=== PATIENT | male | born 1980 | race Caucasian/White ===

== ENCOUNTER 2018-01-11 17:33 | Emergency (ER) | payer SELFPAY ==
[~2018-01-11] VITALS: Ht 175.3 cm; Wt 85.0 kg
[2018-01-11 17:40] VITALS: Ht 175.3 cm; Wt 85.0 kg
[2018-01-11] MEDS ORDERED: SODIUM CHLORIDE 0.9% 1000ML 1,000 ML IV STA (17:51)
[2018-01-11] MEDS ORDERED: ONDANSETRON INJ 2 MG/ML 2 ML VIAL IV STA (17:51)
[2018-01-11] MEDS ORDERED: PANTOprazole INJ 80 MG in DEXTROSE 5% 100ML IV STA (17:55)
[2018-01-11] MEDS ORDERED: ADENOSINE IV SOLN 3 MG/ML 2 ML VIAL ONE ×2 (17:59→18:03)
[2018-01-11 18:05] LABS: ISTAT CREATININE 0.7 mg/dl (0.6-1.3); ISTAT IONIZED CALCIUM 1.09 mmol/l (1.12-1.32); ISTAT POTASSIUM 4.1 mEq/L (3.3-5.0)
[2018-01-11] MEDS ORDERED: PANTOprazole INJ 40 MG in DEXTROSE 5% 100ML IV SCH (18:10)
[2018-01-11 18:11] LABS: INR 1.5 (0.9-1.1); PTT PATIENT 30.8 SECONDS (21.0-31.0)
[2018-01-11 18:18] LABS: HEMATOCRIT 18.2 % (42-52); HEMOGLOBIN 6.6 g/dL (14.0-18.0); MEAN CELL VOLUME 97.3 fL (80-100); MEAN CORPUSCULAR HEMOGLOBIN 35.3 pg (25-34); MEAN CORPUSCULAR HGB CONC 36.3 g/dl (32-36); MEAN PLATELET VOLUME 12.3 fL (7.4-10.4); PLATELET COUNT 114 K/uL (130-400); RED CELL DISTRIBUTION WIDTH CV 13.9 % (11.5-14.5); RED CELL DISTRIBUTION WIDTH SD 47.6 fL (36.4-46.3); WHITE BLOOD COUNT 15.08 K/uL (4.8-10.8)
--- NOTE | 2018-01-11 18:21 | DIAGNOSTIC IMAGING REPORT ---
CHEST ONE VIEW PORTABLE CLINICAL HISTORY: EVALUATE GI BLEED COMPARISON STUDY: No previous studies for comparison. FINDINGS: Pediatric median sternotomy wires are noted, several of which are disrupted. Heart is mildly enlarged. There is no evidence for pulmonary edema. There is no consolidation. No pneumothorax or pleural effusion is present. IMPRESSION: 1. No acute cardiopulmonary findings. 2. Mild cardiomegaly. Electronically signed by: Charles Greene M.D. 01/11/2018 6:19 PM Dictated Date/Time: 01/11/2018 6:19 PM
[2018-01-11 18:35] LABS: ALBUMIN 2.3 gm/dl (3.4-5.0); CALCIUM 7.2 mg/dl (8.5-10.1); CREATININE 0.88 mg/dl (0.60-1.40); POTASSIUM 4.1 mmol/L (3.5-5.1); TOTAL PROTEIN 4.4 gm/dl (6.4-8.2)
[2018-01-11 18:37] LABS: BASO % 0.2 %; BASO ABS # 0.03 K/uL (0-0.2); EOS % 0.1 %; EOS ABS # 0.02 K/uL (0-0.5); IG# 0.07 K/uL (0.00-0.02); LYMPH % 19.5 %; LYMPH ABS # 2.94 K/uL (1.2-3.4); MONO % 7.8 %; MONO ABS # 1.17 K/uL (0.11-0.59); NEUT % 71.9 %; NEUT ABS # 10.85 K/uL (1.4-6.5)
[2018-01-11 18:45] VITALS: BP 99/68; PULSE 134; TEMP 36.7; O2SAT 96
--- NOTE | 2018-01-11 18:53 | EMERGENCY ROOM VISIT NOTE ---
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 Began yesterday with some epigastric discomfort vomited once and had multiple episodes of diarrhea. Describes a vomitus and diarrhea as maroon and mildly red. Not bright red. [place] weak and several times last night once today. Has not been on his Lasix for his heart failure since September due to insurance issues. Follows with [facility] and had his surgery there many years ago. Given his syncope his called EMS today and hypotensive in the 90s initially. Responded to fluid bolus. Had transient SVT there and upon arrival. Transient SVT. Responded to vagal maneuvers. Denies chest pain or shortness of breath. Denies significant alcohol use. Denies NSAID use of significance although did take an Aleve and an Imodium today. Denies a history of GI upset or issues. States he feels dizzy when standing. Source of History: patient, spouse/significant other Position: abdomen Symptom Intensity: moderate Quality: cramping Timing: waxes/wanes Modifying Factors (Worsening): exertion, urination, defecation Modifying Factors (Relieving): rest Associated Symptoms: + diaphoresis, + SOB, + fatigue, + weakness Review of Systems See HPI for pertinent positives and negatives. A total of ten systems were reviewed and were otherwise negative. Social History Alcohol Use: occasionally Marital Status: Housing Status: lives with significant other Occupation Status: employed Current/Historical Medications No Active Prescriptions or Reported Meds Physical Exam Vital Signs Date Time Temp Pulse Resp B/P (MAP) Pulse Ox O2 Delivery O2 Flow Rate FiO2 01/11/18 19:45 36.8 132 17 106/71 97 2.0 01/11/18 19:41 132 18 114/74 96 Nasal Cannula 2.0 01/11/18 19:30 36.9 132 21 120/64 97 2.0 01/11/18 19:15 36.8 129 17 102/68 96 2.0 01/11/18 19:00 36.7 127 21 119/60 98 4.0 01/11/18 18:46 113/65 01/11/18 18:45 36.7 134 22 99/68 96 4.0 01/11/18 18:43 134 23 96 01/11/18 18:41 99/68 01/11/18 18:38 137 21 96 01/11/18 18:36 86/70 01/11/18 18:34 141 20 119/73 96 Nasal Cannula 4.0 01/11/18 18:33 140 18 96 01/11/18 18:32 119/73 01/11/18 18:28 135 26 97 01/11/18 18:27 91/74 01/11/18 18:24 101/70 01/11/18 18:23 137 22 98 01/11/18 18:18 138 21 97 01/11/18 18:13 133 20 98 01/11/18 18:08 133 18 115/58 97 01/11/18 18:03 151 16 96 01/11/18 18:01 83/55 01/11/18 18:00 221 01/11/18 17:58 222 50 01/11/18 17:57 Nasal Cannula 2.0 01/11/18 17:56 99 Nasal Cannula 2.0 01/11/18 17:54 107 01/11/18 17:53 98 18 93 01/11/18 17:51 120/48 01/11/18 17:47 124/71 01/11/18 17:40 100 Nasal Cannula 3.0 01/11/18 17:40 36.9 106 123/78 97 Room Air Physical Exam GENERAL: Awake, alert, sarabia in appearance and fatigued looking HENT: Normocephalic, atraumatic. Oropharynx unremarkable. EYES: Normal conjunctiva. Sclera non-icteric. NECK: Supple. No nuchal rigidity. RESPIRATORY: Clear to auscultation. No wheezes. Normal respiratory effort. CARDIAC: tachycardic rate. Normal rhythm. Extremities warm and well perfused. GI: Soft, non-distended. Slight epigastric pain. Not peritoneal RECTAL: Maroon to dark red stool was present and Hemoccult positive MUSCULOSKELETAL: Atraumatic. Chest examination reveals no tenderness. There is no CVA tenderness to palpation. LOWER EXTREMITIES: Calves are equal size bilaterally and non-tender. No edema NEURO: Normal sensorium. No sensory or motor deficits noted. No facial droop. SKIN: Cool, pale, and dry. No jaundice noted. Medical Decision & Procedures Laboratory Results 01/11/18 17:40 Red Blood Count 1.87, Mean Corpuscular Volume 97.3, Mean Corpuscular Hemoglobin 35.3, Mean Corpuscular Hemoglobin Concent 36.3, Mean Platelet Volume 12.3, Neutrophils (%) (Auto) 71.9, Lymphocytes (%) (Auto) 19.5, Monocytes (%) (Auto) 7.8, Eosinophils (%) (Auto) 0.1, Basophils (%) (Auto) 0.2, Neutrophils # (Auto) 10.85, Lymphocytes # (Auto) 2.94, Monocytes # (Auto) 1.17, Eosinophils # (Auto) 0.02, Basophils # (Auto) 0.03 01/11/18 17:40 Test 01/11/18 17:40 01/11/18 17:52 White Blood Count 15.08 K/uL (4.8-10.8) Red Blood Count 1.87 M/uL (4.7-6.1) Hemoglobin 6.6 g/dL (14.0-18.0) Hematocrit 18.2 % (42-52) Mean Corpuscular Volume 97.3 fL (80-100) Mean Corpuscular Hemoglobin 35.3 pg (25-34) Mean Corpuscular Hemoglobin Concent 36.3 g/dl (32-36) Platelet Count 114 K/uL (130-400) Mean Platelet Volume 12.3 fL (7.4-10.4) Neutrophils (%) (Auto) 71.9 % Lymphocytes (%) (Auto) 19.5 % Monocytes (%) (Auto) 7.8 % Eosinophils (%) (Auto) 0.1 % Basophils (%) (Auto) 0.2 % Neutrophils # (Auto) 10.85 K/uL (1.4-6.5) Lymphocytes # (Auto) 2.94 K/uL (1.2-3.4) Monocytes # (Auto) 1.17 K/uL (0.11-0.59) Eosinophils # (Auto) 0.02 K/uL (0-0.5) Basophils # (Auto) 0.03 K/uL (0-0.2) RDW Standard Deviation 47.6 fL (36.4-46.3) RDW Coefficient of Variation 13.9 % (11.5-14.5) Immature Granulocyte % (Auto) 0.5 % Immature Granulocyte # (Auto) 0.07 K/uL (0.00-0.02) Platelet Estimate NORMAL Red Blood Cell Morphology Unremarkable Prothrombin Time 15.9 SECONDS (9.0-12.0) Prothromb Time International Ratio 1.5 (0.9-1.1) Activated Partial Thromboplast Time 30.8 SECONDS (21.0-31.0) Partial Thromboplastin Ratio 1.2 Est Creatinine Clear Calc Drug Dose 124.3 ml/min Estimated GFR () 127.2 Estimated GFR (Non- 109.7 BUN/Creatinine Ratio 55.8 (10-20) Calcium Level 7.2 mg/dl (8.5-10.1) Magnesium Level 1.6 mg/dl (1.8-2.4) Total Bilirubin 0.8 mg/dl (0.2-1) Direct Bilirubin 0.4 mg/dl (0-0.2) Aspartate Amino Transf (AST/SGOT) 78 U/L (15-37) Alanine Aminotransferase (ALT/SGPT) 76 U/L (12-78) Alkaline Phosphatase 49 U/L (45-117) Troponin I 0.097 ng/ml (0-0.045) Pro-B-Type Natriuretic Peptide 1856 pg/ml (0-450) Total Protein 4.4 gm/dl (6.4-8.2) Albumin 2.3 gm/dl (3.4-5.0) Lipase 159 U/L (73-393) Thyroid Stimulating Hormone (TSH) 4.780 uIu/ml (0.300-4.500) Bedside Hemoglobin 13.3 g/dl (14.0-18.0) Bedside Hematocrit 39 % (42-52) Bedside Sodium 142 mEq/L (135-144) Bedside Potassium 4.1 mEq/L (3.3-5.0) Bedside Chloride 108 mEq/L (101-112) Bedside Total CO2 17 mEq/l (24-31) Anion Gap 22.0 mmol/L (16-25) Bedside Blood Urea Nitrogen 48 mg/dl (7-18) Bedside Creatinine 0.7 mg/dl (0.6-1.3) Bedside Glucose (other) 122 mg/dl (70-99) Bedside Ionized Calcium (Joana) 1.09 mmol/l (1.12-1.32) Medications Administered Medications (Trade) Dose Ordered Sig/Brooks Route Start Time Stop Time Status Last Admin Dose Admin Sodium Chloride 1,000 ml @ 999 mls/hr Q1H1M STAT IV 01/11/18 17:51 01/11/18 18:51 DC 01/11/18 18:00 999 MLS/HR Ondansetron HCl (Zofran Inj) 4 mg NOW STAT IV 01/11/18 17:51 01/11/18 17:53 DC 01/11/18 18:18 4 MG Pantoprazole Sodium 80 mg/ Dextrose 120 ml @ 480 mls/hr NOW STAT IV 01/11/18 17:55 01/11/18 18:09 DC 01/11/18 18:15 480 MLS/HR Pantoprazole Sodium 40 mg/ Dextrose 100 ml @ 20 mls/hr Q5H IV 01/11/18 18:10 01/11/18 23:09 01/11/18 18:34 20 MLS/HR Adenosine (Adenosine Iv) 6 mg STK-MED ONCE .ROUTE 01/11/18 17:59 01/11/18 18:00 DC 01/11/18 17:59 6 MG ECG Per My Interpretation Indication: tachycardia Rate (beats per minute): 99 Rhythm: sinus tachycardia Findings: other (incomplete RBBB, III/V1/V2/V3 t wave inversions. No STEMI) Comparison ECG Date: no prior available ED Course 1736: The patient was evaluated in room B4. A complete history and physical exam was performed. Vagal maneuvers performed for SVT in the 160s. Successful. Hemoccult + stool 1745: Call back to room patient in SVT in the 200s. Vagal maneuvers failed. Adenosine 6 ng given with resolution into the 120s and 1 teens of sinus tach. 1830: Discussed with [facility] ICU doctor and GI for transfer. Patient receiving Protonix drip. Uncrossed match blood in route from blood bank. Tachy in 130s but SBP 115. 1850: Uncrossed match blood being transfused. Helicopter in route for transfer. Family has been updated. Blood consent was completed. 2004: [facility] at bedside. Care transitioned. 2 u pRBC completed at this time. Patient feeling mildly improved. Transfer to [facility]. Medical Decision Patient's concerning for possible GI bleed. Unsure of what prompted this as he has no history of this or alcohol or NSAID use. Mild epigastric discomfort. Concern for again also. Abdomen is not peritoneal I doubt perforation. Recurrent episodes of SVT initially responding to vagal maneuvers. Later required 6 g of adenosine for conversion. Still in sinus tachycardia. After a liter of fluid for EMS is normotensive upon arrival mildly tachycardic. Very pale in nature. 2 IVs were established. Protonix drip and bolus was initiated. Case management assisted with obtaining outside records from [facility]. Not having active chest pain. Very sarabia in appearance and given the underlying cardiac issues believed to be better served at a tertiary care center. Patient in agreement. Given 2 units of uncrossed matched blood initially and discussed with the [facility] ICU and GI. 1L NS here and 1LNS for EMS. Initial hemoglobin 6.6. Records show Jul 2012 Hgb of 17.9 most recent available for comparison. Given his critical nature helicopter transport will be arranged- ICU accepting at [facility] Dr. [place]. Patient agreeable and consented for uncrossed blood. Agreeable for transfer and full code. Hypomagnesemia and slight hypocalcemia. Thrombocytopenia also noted. Slight troponin elevation likely demand; given GI bleed will NOT give aspirin. Feels mildly improved after 2u pRBC. Stable for helicopter transfer to [facility]. Blood Pressure Screening Patient's blood pressure: Normal blood pressure Impression Primary Impression: GI bleeding Additional Impressions: Acute blood loss anemia SVT (supraventricular tachycardia) NSTEMI (non-ST elevated myocardial infarction) Thrombocytopenia Critical Care I have personally spent greater than 120 minutes of critical care time in the direct management of this patient. This includes bedside care, interpretation of diagnostic studies, and testing, discussion with consultants, patient, and family members, and other required patient management activities. This time is in excess of all separately billable procedures. Departure Information Dispostion Transfer Acute Care Facility Condition FAIR Prescriptions No Active Prescriptions or Reported Meds Referrals Frances Enrique D.O. (PCP) Patient Instructions My [facility] Problem Qualifiers Primary Impression: GI bleeding GI bleed type/associated pathology: unspecified gastrointestinal hemorrhage type Qualified Codes: K92.2 - Gastrointestinal hemorrhage, unspecified
[2018-01-11 19:00] VITALS: BP 119/60; PULSE 127; TEMP 36.7; O2SAT 98
[2018-01-11 19:15] VITALS: BP 102/68; PULSE 129; TEMP 36.8; O2SAT 96
[2018-01-11 19:30] VITALS: BP 120/64; PULSE 132; TEMP 36.9; O2SAT 97
[2018-01-11 19:45] VITALS: BP 106/71; PULSE 132; TEMP 36.8; O2SAT 97
[2018-01-11 20:22] VITALS: BP 117/62; PULSE 132; TEMP 36.7; O2SAT 97
== END 2018-01-11 20:10 | disposition short-term general hospital (02) ==
LOC: EDBD 17:33 → C.EDB 17:34
DX: K92.2 Gastrointestinal hemorrhage, unspecified (principal); D62 Acute posthemorrhagic anemia; I47.1 Supraventricular tachycardia; I21.4 Non-ST elevation (NSTEMI) myocardial infarction; D69.6 Thrombocytopenia, unspecified; I50.9 Heart failure, unspecified; Z95.0 Presence of cardiac pacemaker

== ENCOUNTER 2018-09-14 06:18 | Observation (INO) ==
[2018-09-14] MEDS ORDERED: fentaNYL citrate 100 MCG/2 ML VIAL IV STA (06:39)
--- NOTE | 2018-09-14 06:57 | XRay Report ---
XR chest 1V portable CLINICAL HISTORY: Atypical chest pain and shortness of breath COMPARISON STUDY: 01/11/2018 FINDINGS: There are postsurgical changes of midline sternotomy. The heart is enlarged. There is radio graphic evidence of mild interstitial pulmonary edema. There is no lobar consolidation.[ IMPRESSION: Cardiomegaly and interval development of mild interstitial pulmonary edema. Electronically signed by: David Ureña M.D. 09/14/2018 6:55 AM
[2018-09-14 07:01] LABS: Alanine Aminotransferase 92 U/L (12-78); Albumin Level 3.6 gm/dl (3.4-5.0); Aspartate Aminotransferase 78 U/L (15-37); BUN Creatinine Ratio 22.1 (10-20); Bilirubin Direct 0.5 mg/dl (0-0.2); Blood Urea Nitrogen 16 mg/dl (7-18); Calcium 8.7 mg/dl (8.5-10.1); Carbon Dioxide 24 mmol/L (21-32); Chloride 111 mmol/L (98-107); Creatinine Clr Calc Pharmacy 166.3 ml/min; Est GFR (African American) 137.2; Est GFR (Non-African American) 118.3; Glucose 103 mg/dl (70-99); Magnesium 1.9 mg/dl (1.8-2.4); Potassium 4.2 mmol/L (3.5-5.1); Sodium 142 mmol/L (136-145)
[2018-09-14 07:04] LABS: INR 1.2 (0.9-1.1); Partial Thromboplastin Ratio 1.1; Partial Thromboplastin Time 28.5 Seconds (21.0-31.0); Prothrombin Time 11.9 Seconds (9.0-12.0)
[2018-09-14 07:06] LABS: Alkaline Phosphatase 114 U/L (45-117); NT Pro B Type Natriuretic Pept 527 pg/ml (0-450); Total Protein 7.3 gm/dl (6.4-8.2); Troponin I < 0.015 ng/ml (0-0.045)
[2018-09-14 07:15] LABS: Basophils # (auto) 0.02 K/uL (0-0.2); Basophils % (auto) 0.3 %; Eosinophils # (auto) 0.12 K/uL (0-0.5); Eosinophils % (auto) 1.9 %; Hematocrit (blood only) 44.6 % (42-52); Hemoglobin 15.8 g/dL (14.0-18.0); Immature Granulocytes # (auto) 0.01 K/uL (0.00-0.02); Immature Granulocytes % (auto) 0.2 %; Lymphocytes # (auto) 0.97 K/uL (1.2-3.4); Lymphocytes % (auto) 15.6 %; Mean Corpuscular Hgb Conc 35.4 g/dL (32-36); Mean Corpuscular Volume 99.6 fL (80-100); Mean Platelet Volume 12.6 fL (7.4-10.4); Monocytes # (auto) 0.43 K/uL (0.11-0.59); Monocytes % (auto) 6.9 %; Neutrophils # (auto) 4.65 K/uL (1.4-6.5); Neutrophils % (auto) 75.1 %; Platelet Count 65 K/uL (130-400); Platelet Estimate Decreased (Normal); RDW Standard Deviation 50.6 fL (36.4-46.3); Red Blood Count 4.48 M/uL (4.7-6.1)
[2018-09-14] MEDS ORDERED: FUROSEMIDE 40 MG/4 ML VIAL IV STA (07:20)
--- NOTE | 2018-09-14 09:28 | History & Physical Report ---
Date of Service September 14, 2018 Assessment & Plan (1) Chest pain: Worsening SOB Present on admission with chest pain associated with SOB Mostly triggered by nadolol CXR on admission cardiomegaly and interval development of mild interstitial pulmonary edema. Pro-BNP on admission 527 troponin negative EKG showed no ischemic changes Received 40mg IV lasix in the ER Will consult cardiology Will get echo Monitor in tele closely (2) Chronic hepatitis C: (3) Liver cirrhosis: Recently saw GI Was starting on Nadolol Will d/c Nadolol Follow up with GI as an oupatient (4) Cardiac pacemaker in situ: Last pacemaker interrogation on 01/17 EKG on admission did not show any pacing Will interrogate pacemaker (5) History of GI bleed: Transferred to [place] last December for GI bleed Hgb stable DVT px pt ambulates CODE status Full code Disposition Will monitor in tele History of Present Illness Primary Care Provider: Laron Clemens MD 37-year-old gentleman with a PMH of 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 Pt said that he saw GI on Friday for HCV cirrhosis and was started on Nadolol. Pt said that he started the Nadolol on Friday. He said that after taking the 1st dose nadolol, he went to sleep for about 1-2 hrs and when he woke up he developed pressure like chest pain, non radiating associated with SOB. Pt said that SOB worsening with minimal exertion associated with orthopnea. He said that he felt like he just ran a marathon. He said that he developed b/l LE edema. Pt said that he used to be on lasix that was discontinue last year. He said that after he received the lasix in the ER, He urinated 3 times and his breathing improves and his chest pain resolved. He said that he follows with cardiology in [place]. He said that his pacemaker battery was changed back in 2008. last pacemaker interrogation done back in 01/17. Currently denies any chest pain, palpitation, dizziness, nausea and vomiting. Allergies Allergy/AdvReac Type Severity Reaction Status Date / Time pseudoephedrine AdvReac Intermediate Palpitation Verified 09/14/18 06:51 [From Sudafed] s Home Medications Home Medications Medication Instructions Recorded Confirmed Type ferrous sulfate 325 mg PO DAILY 09/14/18 09/14/18 History nadolol 20 mg PO DAILY 09/14/18 09/14/18 History varenicline [Chantix Continuing 1 mg PO BID 09/14/18 09/14/18 History Month Box] Past Med/Surg History Medical History Congenital heart disease History of GI bleed Cardiac pacemaker in situ Liver cirrhosis Chronic hepatitis C Chest pain Social History Preferred Language: [place] Communication Ability: Effective Beliefs That Will Affect Care: None Current Living Situation: Spouse Other Information That Helps Us Care for You: No Feels Safe at Home: Yes Safety Concerns: Feels Safe At This Time Smoking Status: Never smoker Hx Alcohol Use: Yes Hx Substance Use: No Review of Systems All systems reviewed & are unremarkable except as noted in HPI & below Physical Exam Vital Signs (Past 24 Hours): Last Vital Signs Temp 37 C 09/14/18 06:21 Pulse 57 L 09/14/18 08:06 Resp 12 09/14/18 08:06 BP 121/73 09/14/18 08:06 Pulse Ox 96 09/14/18 08:06 Physical Exam: General- No acute distress Head- atraumatic Eyes- PERRL, EOMI, ENT- oropharynx clear Neck- supple, no JVD Lungs- clear to auscultation Heart- regular rhythm; +murmur Abdomen- normal bowel sounds, soft, nontender Extremities- no calf tenderness Neuro- alert, oriented x 3; PERRL, EOMI; no facial palsy; no dysarthria Skin- warm & dry Results & Data Diagnostic Findings XR chest 1V portable CLINICAL HISTORY: Atypical chest pain and shortness of breath COMPARISON STUDY: 01/11/2018 FINDINGS: There are postsurgical changes of midline sternotomy. The heart is enlarged. There is radiographic evidence of mild interstitial pulmonary edema. There is no lobar consolidation.[ IMPRESSION: Cardiomegaly and interval development of mild interstitial pulmonary edema. Electronically signed by: David Ureña M.D. 09/14/2018 6:55 AM Dictated: 09/14/18654 Transcribed: 09/14/1855
[2018-09-14] MEDS ORDERED: FERROUS SULFATE 325 MG TAB PO SCH (11:12)
--- NOTE | 2018-09-14 14:34 | Emergency Department Note ---
Entered by Shannan Alberto acting as a scribe for Cristobal Hanley MD ED Provider Note Name: Jerry Wayne Age: Chest pain Arrives Via: Private vehicle Informant: Patient CC: Chest pain HPI: A 38 year old male arrives for evaluation of persistent chest pressure beginning 2 days ago. He reports his symptoms began shortly after beginning Nadolol 2 days ago, which he was prescribed for esophageal varices. The patient states he took his first dose of Nadolol 2 days ago, took a 1 hour nap, and woke up with his current symptoms. He notes he has not taken another dose since. The patient describes his chest pain as pressure that radiates up to his throat/neck. He reports shortness of breath on exertion. He states he is lightheaded and has intermittent sweatiness. The patient reports leg edema, which he had experienced intermittently over the past few months. His notes the patient has been urinating more frequently over the past couple days. The patient denies lightheadedness, black or bloody stools, or urinary burning. ROS: See above HPI for pertinent positives & negatives. A total of 10 systems reviewed and were otherwise negative. Past Medical History: Hepatitis C, GI bleed, esophageal varices, transposition of great vessels at . Past Surgical History: Repair of transposition of great vessels, pacemaker placement. Family History: Heart disease. Social History: Former smoker. Home Medications: Ferrous sulfate, nadolol, varenicline. Allergies: Pseudoephedrine. Physical: Vitals: Blood pressure: 114/74. Heart rate: 59. Respiratory rate: 14. Temperature: 98.6 F. O2 saturation: 94, delivery: room air. Exam: GENERAL: Patient is uncomfortable appearing and in mild distress. Diaphoretic. EYES: No scleral icterus, unremarkable pupils. ENT: Mucous membranes moist, no nasal congestion. NECK: No masses appreciated, no meningismus, trachea is midline. RESPIRATORY: No dyspnea. Mild crackles at bases. No wheeze, no rhonchi. CARDIOVASCULAR: Noted to be bradycardic. Regular rhythm. Systolic murmur. GASTROINTESTINAL: Abdomen soft, non-tender, no peritonitis. Bowel sounds positive. No masses appreciated. BACK: No midline tenderness, no CVA tenderness EXTREMITIES: Normal motion all extremities, no cyanosis. Bilateral leg edema. NEUROLOGIC: Alert and oriented, no acute motor or sensory deficits, no focal weakness, cranial nerves grossly intact. SKIN: No rash, no jaundice, no diaphoresis. ED Course: Prior Medical Record, Triage/Nursing Notes, Medications, Allergies reviewed by Me Vital Signs: reviewed and remarkable for mild hypoxia, bradycardia Labs: Reviewed and remarkable for normal cbc, bmp, bnp, trop Interventions: Saline Lock, Lasix 40mg IV Imaging: X ray results are stated below per my interpretation: Chest: 1 view: Bilateral congestive findings new form previous. EKG: Per My Interpretation: Indication: SHOB/CP: Sinus 62 bpm with long 1st av block which is new from previous. RBBB with deep Ts similar to previous. No ischemia and overall morphology of qrs similar to EKGs from 2018. Consults: 0735: I reviewed the patient's case with Dr. Baum, [facility] hospitalist. He will evaluate the patient for further management. Reassessments/Times: 0659: The patient has had some improvement of his pain. 0740: Upon reevaluation, the patient is resting and feels much better on nasal cannula. He just received his Lasix dose. I discussed test results. The patient verbalized agreement with the treatment plan. Blood pressure: Normal. No Referral necessary. Disposition: Evaluation by hospitalist. Prescriptions: none. Differentials: Etiologies such as shingles, musculoskeletal pain, pericarditis, myocarditis, cardiac ischemia, pericardial tamponade, pneumonia, pneumothorax, pleural effusion, hemothorax, pleurisy, aortic pathology, pulmonary embolism, intra-abdominal process, as well as others were considered. Medical Decision Makin yr old male with complex past cardiac surgical history. He is uncomfortable appearing and appears CHF by exam. Unclear exactly but could have been he went further vaishnavi on nadalol and started developing CHF in conjunction with fluid build up on legs last few weeks now that he's off lasix. Renal function OK thus IV lasix. He feels much better with NC O2 thus will leave him on that for now. WIth history I feel that coming in will be beneficial to patient. He agrees. Hospitalist in to bring in for further management. Impression: Congestive Heart Failure Substernal Chest Pain Cristobal Hanley MD The scribe's documentation has been prepared under my direction and personally reviewed by me in its entirety. I confirm that the note above accurately reflects all work, treatment, procedures, and medical decision making performed by me. Impression & Plan Congestive heart failure, Substernal chest pain Past Med/Surg History Medical History Congenital heart disease History of GI bleed Cardiac pacemaker in situ Liver cirrhosis Chronic hepatitis C Chest pain Social History Preferred Language: Cook Islander Communication Ability: Effective Beliefs That Will Affect Care: None Current Living Situation: Spouse Other Information That Helps Us Care for You: No Feels Safe at Home: Yes Safety Concerns: Feels Safe At This Time Smoking Status: Never smoker Hx Alcohol Use: Yes Hx Substance Use: No Results & Data Vital Signs Vital Signs - 24 hr 09/14/18 06:21 09/14/18 06:50 09/14/18 07:07 Temperature 37 C Temperature Source Oral Sepsis Recent Fever Within 48 Hours No Sepsis Action Taken by Nursing No Action Required Pulse Rate 63 Pulse Rate [Apical] 59 L Pulse Rhythm [Apical] Regular Pulse Strength [Apical] Respiratory Rate 16 14 Respiratory Effort / Characteristics Non-Labored Respiratory Depth Normal Normal Respiratory Pattern Blood Pressure 132/82 Blood Pressure [Left Arm] 114/74 Blood Pressure Mean 98 Blood Pressure Mean [Left Arm] 87 Blood Pressure Position [Left Arm] Sitting Pulse Oximetry 95 94 94 Oxygen Delivery Method Room Air Room Air Nasal Cannula Oxygen Flow Rate 0 09/14/18 07:29 09/14/18 07:46 09/14/18 08:06 Temperature Temperature Source Sepsis Recent Fever Within 48 Hours Sepsis Action Taken by Nursing Pulse Rate Pulse Rate [Apical] 57 L 57 L Pulse Rhythm [Apical] Regular Regular Pulse Strength [Apical] Respiratory Rate 15 12 Respiratory Effort / Characteristics Non-Labored SOB on Exertion Non-Labored Respiratory Depth Normal Normal Normal Respiratory Pattern Regular Regular Blood Pressure Blood Pressure [Left Arm] 129/80 121/73 Blood Pressure Mean Blood Pressure Mean [Left Arm] 96 89 Blood Pressure Position [Left Arm] Sitting Pulse Oximetry 97 96 Oxygen Delivery Method Room Air Room Air Nasal Cannula Oxygen Flow Rate 2 2 09/14/18 09:00 09/14/18 10:08 09/14/18 10:48 Temperature Temperature Source Sepsis Recent Fever Within 48 Hours Sepsis Action Taken by Nursing Pulse Rate Pulse Rate [Apical] 58 L 57 L 53 L Pulse Rhythm [Apical] Regular Regular Regular Pulse Strength [Apical] Respiratory Rate 15 14 17 Respiratory Effort / Characteristics Non-Labored Non-Labored Respiratory Depth Normal Normal Normal Respiratory Pattern Blood Pressure Blood Pressure [Left Arm] 116/69 113/66 109/58 L Blood Pressure Mean Blood Pressure Mean [Left Arm] 84 81 75 Blood Pressure Position [Left Arm] Sitting Sitting Lying Pulse Oximetry 96 98 99 Oxygen Delivery Method Nasal Cannula Nasal Cannula Nasal Cannula Oxygen Flow Rate 2 2 09/14/18 10:52 09/14/18 11:24 09/14/18 12:00 Temperature 36.9 C Temperature Source Oral Sepsis Recent Fever Within 48 Hours Sepsis Action Taken by Nursing Pulse Rate Pulse Rate [Apical] 52 L 58 L Pulse Rhythm [Apical] Regular Regular Pulse Strength [Apical] Normal Normal Respiratory Rate 18 18 Respiratory Effort / Characteristics Non-Labored Spontaneous Non-Labored Spontaneous Respiratory Depth Normal Normal Respiratory Pattern Regular Regular Blood Pressure Blood Pressure [Left Arm] 127/64 117/66 Blood Pressure Mean Blood Pressure Mean [Left Arm] 85 83 Blood Pressure Position [Left Arm] Sitting Sitting Pulse Oximetry 98 97 97 Oxygen Delivery Method Nasal Cannula Room Air Room Air Oxygen Flow Rate 2 Home Medications Current Medication List: was personally reviewed by me Laboratory Data Attestation: I reviewed the patient's lab results. Result diagrams: 09/14/18 06:33 09/14/18 06:33 Lab Results 09/14/18 09/14/18 09/14/18 Range/Units 06:33 06:33 06:33 WBC 6.20 (4.8-10.8) K/uL RBC 4.48 L (4.7-6.1) M/uL Hgb 15.8 (14.0-18.0) g/dL Hct 44.6 (42-52) % MCV 99.6 (80-100) fL MCH 35.3 H (25-34) pg MCHC 35.4 (32-36) g/dL RDW Std Deviation 50.6 H (36.4-46.3) fL RDW Coeff of Jefry 14.0 (11.5-14.5) % Plt Count 65 L (130-400) K/uL MPV 12.6 H (7.4-10.4) fL Immature Gran % (Auto) 0.2 % Neut % (Auto) 75.1 % Lymph % (Auto) 15.6 % Cooke % (Auto) 6.9 % Eos % (Auto) 1.9 % Baso % (Auto) 0.3 % Immature Gran # (Auto) 0.01 (0.00-0.02) K/uL Neut # (Auto) 4.65 (1.4-6.5) K/uL Lymph # (Auto) 0.97 L (1.2-3.4) K/uL Cooke # (Auto) 0.43 (0.11-0.59) K/uL Eos # (Auto) 0.12 (0-0.5) K/uL Baso # (Auto) 0.02 (0-0.2) K/uL Platelet Estimate Decreased (Normal) PT 11.9 (9.0-12.0) Seconds INR 1.2 H (0.9-1.1) APTT 28.5 (21.0-31.0) Seconds PTT Ratio 1.1 Sodium 142 (136-145) mmol/L Potassium 4.2 (3.5-5.1) mmol/L Chloride 111 H (98-107) mmol/L Carbon Dioxide 24 (21-32) mmol/L Anion Gap 8.0 (3-11) BUN 16 (7-18) mg/dl Creatinine 0.72 (0.6-1.4) mg/dl Est Cr Clr Drug Dosing 166.3 ml/min Est GFR ( Amer) 137.2 Est GFR (Non-Af Amer) 118.3 BUN/Creatinine Ratio 22.1 H (10-20) Glucose 103 H (70-99) mg/dl Calcium 8.7 (8.5-10.1) mg/dl Magnesium 1.9 (1.8-2.4) mg/dl Total Bilirubin 1.0 (0.2-1) mg/dl Direct Bilirubin 0.5 H (0-0.2) mg/dl AST 78 H (15-37) U/L ALT 92 H (12-78) U/L Alkaline Phosphatase 114 (45-117) U/L Troponin I < 0.015 (0-0.045) ng/ml NT-Pro-B Natriuret Pep 527 H (0-450) pg/ml Total Protein 7.3 (6.4-8.2) gm/dl Albumin 3.6 (3.4-5.0) gm/dl Nasal Screen MRSA (PCR) (Negative) 09/14/18 09/14/18 Range/Units 11:15 11:50 WBC (4.8-10.8) K/uL RBC (4.7-6.1) M/uL Hgb (14.0-18.0) g/dL Hct (42-52) % MCV (80-100) fL MCH (25-34) pg MCHC (32-36) g/dL RDW Std Deviation (36.4-46.3) fL RDW Coeff of Jefry (11.5-14.5) % Plt Count (130-400) K/uL MPV (7.4-10.4) fL Immature Gran % (Auto) % Neut % (Auto) % Lymph % (Auto) % Cooke % (Auto) % Eos % (Auto) % Baso % (Auto) % Immature Gran # (Auto) (0.00-0.02) K/uL Neut # (Auto) (1.4-6.5) K/uL Lymph # (Auto) (1.2-3.4) K/uL Cooke # (Auto) (0.11-0.59) K/uL Eos # (Auto) (0-0.5) K/uL Baso # (Auto) (0-0.2) K/uL Platelet Estimate (Normal) PT (9.0-12.0) Seconds INR (0.9-1.1) APTT (21.0-31.0) Seconds PTT Ratio Sodium (136-145) mmol/L Potassium (3.5-5.1) mmol/L Chloride (98-107) mmol/L Carbon Dioxide (21-32) mmol/L Anion Gap (3-11) BUN (7-18) mg/dl Creatinine (0.6-1.4) mg/dl Est Cr Clr Drug Dosing ml/min Est GFR ( Amer) Est GFR (Non-Af Amer) BUN/Creatinine Ratio (10-20) Glucose (70-99) mg/dl Calcium (8.5-10.1) mg/dl Magnesium (1.8-2.4) mg/dl Total Bilirubin (0.2-1) mg/dl Direct Bilirubin (0-0.2) mg/dl AST (15-37) U/L ALT (12-78) U/L Alkaline Phosphatase (45-117) U/L Troponin I < 0.015 (0-0.045) ng/ml NT-Pro-B Natriuret Pep (0-450) pg/ml Total Protein (6.4-8.2) gm/dl Albumin (3.4-5.0) gm/dl Nasal Screen MRSA (PCR) Negative (Negative) Administered Medications Ferrous Sulfate (Feosol) 325 mg PO DAILY DEYSI Stop: 10/14/18 11:11 Last Admin: 09/14/18 12:06 Dose: 325 mg Documented by: [id number] Discontinued Medications Fentanyl Citrate (Fentanyl Citrate) 75 mcg IV NOW STA Stop: 09/14/18 06:40 Last Admin: 09/14/18 06:49 Dose: 75 mcg Documented by: [id number] Furosemide (Lasix) 40 mg IV NOW STA Stop: 09/14/18 07:21 Last Admin: 09/14/18 07:28 Dose: 40 mg Documented by: [id number] Imaging Data Radiologist's Impression: Radiology results as stated below per my review and the radiologist's interpretation: XR chest 1V portable CLINICAL HISTORY: Atypical chest pain and shortness of breath COMPARISON STUDY: 01/11/2018 FINDINGS: There are postsurgical changes of midline sternotomy. The heart is enlarged. There is radiographic evidence of mild interstitial pulmonary edema. There is no lobar consolidation.[ IMPRESSION: Cardiomegaly and interval development of mild interstitial pulmonary edema. Electronically signed by: David Ureña M.D. 09/14/2018 6:55 AM Blood Pressure Blood Pressure Findings: Normal blood pressure Blood Pressure Disposition: did not require urgent referral Discharge Plan Visit Data *Final* Discharge Date/Time: 09/14/18 10:52 Chief Complaint: Chest Pain Stated Complaint: CHEST PAIN,BACK PAIN,SHORTNESS OF BREATH ED Provider: Cristobal Hanley Discharge Problem: Congestive heart failure, Substernal chest pain Patient Disposition: Admitted As Inpatient Discharge Instructions Interventions: ED Discharge Assessment Last Done: 09/14/18 10:52 Discharge Problem: Congestive heart failure Qualifiers: Heart failure type: other Qualified Code(s): I50.9 - Heart failure, unspecified The scribe's documentation has been prepared under my direction and personally reviewed by me in its entirety. I confirm that the note above accurately reflects all work, treatment, procedures, and medical decision making performed by me.
--- NOTE | 2018-09-15 12:53 | Consultation Report ---
DATE OF CONSULTATION: 09/14/2018 CARDIOLOGY CONSULTATION REFERRING PHYSICIAN: Elliot Baum MD PRIMARY CARE PHYSICIAN: Frances Enrique DO INDICATIONS: Chest pressure acute edema. HISTORY OF PRESENT ILLNESS: The patient is a 38-year-old male with complex history which includes: 1. 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 2. Status post pacemaker insertion for sick sinus syndrome in 1986 with generator exchange in 1991 and 2008 and malfunctioning epicardial lead since 2012. 3. Ectopic atrial rhythm. 4. History of moderate mitral valve insufficiency. 5. History of subpulmonic LV outflow tract stenosis. 6. Hepatic cirrhosis with positive hepatitis C. 7. History of acute GI bleed December 2017. The patient presents this admission, noting having been seen for routine evaluation of underlying hepatic cirrhosis and begun on nadolol last week. He took single dose on Friday and immediately felt "poorly." Slept most of the day, then developed a substernal pressure, burning sensation which lasted until presentation. On arrival to the Emergency Room earlier today patient had a hand and lower extremity edema with mild breathlessness and increased pulmonary vasculature markings on chest x-ray. He was given a single dose of Lasix with resolve of all symptoms. He is now comfortable at time of examination. Notes no current chest pains. Notes no exertional symptoms up until recent days. He has been physically active on the job without tachy palpitations, syncope or near syncope. Notes no orthopnea. Notes no acute weight loss or gain. Notes no recent bleeding difficulties. Notes no melena, hematochezia, dysuria or hematuria. Appetite and weight have been stable. He sleeps well at night. He has had no other changes in medications. ALLERGIES: SUDAFED. MEDICATIONS PRIOR TO HOSPITALIZATION: Ferrous sulfate 325 mg per day, Chantix and recent addition of nadolol 20 mg p.o. daily with single dose received. PAST SURGICAL HISTORY: Notable for Transposition revision June 1980 followed by a Senning procedure 11/1980. Epicardial lead placement 1986, generator exchange 1991 and most recently 2008 with repeat insertion of epicardial lead in 2008. FAMILY HISTORY: Notable for ASD in mother. SOCIAL HISTORY: The patient works as "a garbageman." He is a 1 pack per day smoker, uses rare alcoholic beverages. PHYSICAL EXAMINATION: GENERAL: The patient is an age appropriate male in no acute distress. VITAL SIGNS: Reveal heart rate of 53, blood pressure is 118/59. HEENT: Normocephalic, atraumatic. Nares without discharge. Throat was clear. NECK: Supple without thyromegaly, lymphadenopathy. There is no jugular venous distention. LUNGS: Clear to auscultation on my exam. CARDIOVASCULAR: Regular with a grade 2-3/6 systolic murmur. There is no audible diastolic murmur. There is no S3 gallop. PMI is nondisplaced. ABDOMEN: Soft, nontender. There is no palpable hepatosplenomegaly. There is no hepatojugular reflux. EXTREMITIES: Without cyanosis or clubbing. There is no peripheral edema after diuresis earlier today. NEUROLOGIC: The patient is alert and oriented, answering questions appropriately. DATA: Echocardiogram was performed today and demonstrates findings of Senning procedure with functioning baffle. There is subpulmonic outflow tract obstruction with moderate RONALDO of the mitral valve leaflet, mild to moderate pulmonary insufficiency and preserved LV systolic function and right ventricular systolic function, unchanged from prior studies with current study and [facility] study reviewed by Adult Congenital [facility] staff. LABORATORY STUDIES: White cell count 6.2, hemoglobin is 15.8, platelet count 65,000. Sodium is 142, potassium is 4.2, chloride 111, bicarbonate 24, BUN 16, creatinine 0.72, AST 78, ALT 92. BNP on presentation was 527. TSH was 4.78. Pacemaker interrogation attempts to access the patient at the pacemaker revealed no response with magnet or with computer game programmer. There were no paced rhythms discerned. Leads appear appropriate on chest x-ray performed. IMPRESSION AND PLAN: A 38-year-old male who presents with acute symptoms after single dose of nadolol suspicious for bradycardia, rate induce complaints. The patient with pacemaker, though nonfunctioning. The patient does not use pacemaker and has not been following closely regarding battery life and lead. Functions well on the beta at baseline. Echocardiogram demonstrates no acute changes. RECOMMENDATIONS: The patient may be discharged to home with p.r.n. Lasix 20 mg as needed for peripheral edema. The patient will continue to follow with pediatric cardiology at [facility] in [place] for adult congenital clinic. We would avoid all AV node blocking drugs given resting bradycardia, ectopic atrial rhythm and nonfunctioning pacemaker. Will discuss with primary catering truck driver whether future, need for pacemaker is present. MTDD
--- NOTE | 2018-10-05 12:51 | Discharge Summary ---
Date of Service September 14, 2018 Admission HPI Per Admitting Provider 37-year-old gentleman with a PMH of Congenital heart disease with transposition of the great vessels status post repair, Cardiac pacemaker placed at age 7, Cirrhosis of liver, chronic hepatitis C, GI bleed was transferred to [place] on 01/17, Present to the ER for chest pain. Pt said that he saw GI on Friday for HCV cirrhosis and was started on Nadolol. Pt said that he started the Nadolol on Friday. He said that after taking the 1st dose nadolol, he went to sleep for about 1-2 hrs and when he woke up he developed pressure like chest pain, non radiating associated with SOB. Pt said that SOB worsening with minimal exertion associated with orthopnea. He said that he felt like he just ran a marathon. He said that he developed b/l LE edema. Pt said that he used to be on lasix that was discontinue last year. He said that after he received the lasix in the ER, He urinated 3 times and his breathing improves and his chest pain resolved. He said that he follows with cardiology in [place]. He said that his pacemaker battery was changed back in 2008. last pacemaker interrogation done back in 01/17. Currently denies any chest pain, palpitation, dizziness, nausea and vomiting. Admission Exam Per Admitting Provider General- No acute distress Head- atraumatic Eyes- PERRL, EOMI, ENT- oropharynx clear Neck- supple, no JVD Lungs- clear to auscultation Heart- regular rhythm; +murmur Abdomen- normal bowel sounds, soft, nontender Extremities- no calf tenderness Neuro- alert, oriented x 3; PERRL, EOMI; no facial palsy; no dysarthria Skin- warm & dry Principal Diagnosis Chest pain Pacemaker non-functioning Dyspnea Liver Cirrhosis Discharge Exam General- No acute distress Head- atraumatic Eyes- PERRL, EOMI, ENT- oropharynx clear Neck- supple, no JVD Lungs- clear to auscultation Heart- regular rhythm; +murmur Abdomen- normal bowel sounds, soft, nontender Extremities- no calf tenderness Neuro- alert, oriented x 3; PERRL, EOMI; no facial palsy; no dysarthria Skin- warm & dry Discharge Data Allergies Allergy/AdvReac Type Severity Reaction Status Date / Time pseudoephedrine AdvReac Intermediate Palpitation Verified 09/14/18 06:51 [From Ronald] s Consultations 09/14/18 07:39 ED Decision to Admit Stat 09/14/18 11:12 Consult Cardiology Routine Ordered Studies XR chest 1V portable CLINICAL HISTORY: Atypical chest pain and shortness of breath COMPARISON STUDY: 01/11/2018 FINDINGS: There are postsurgical changes of midline sternotomy. The heart is enlarged. There is radiographic evidence of mild interstitial pulmonary edema. There is no lobar consolidation.[ IMPRESSION: Cardiomegaly and interval development of mild interstitial pulmonary edema. Electronically signed by: David Ureña M.D. 09/14/2018 6:55 AM Dictated: 09/14/18654 Transcribed: 09/14/18654 Hospital Course (1) Chest pain: Worsening SOB Present on admission with chest pain associated with SOB Mostly triggered by nadolol CXR on admission cardiomegaly and interval development of mild interstitial pulmonary edema. Pro-BNP on admission 527 troponin negative EKG showed no ischemic changes Received 40mg IV lasix in the ER Will consult cardiology Will get echo Monitor in tele closely (2) Chronic hepatitis C: (3) Liver cirrhosis: Recently saw GI Was starting on Nadolol Will d/c Nadolol Follow up with GI as an oupatient (4) Cardiac pacemaker in situ: Last pacemaker interrogation on 01/17 EKG on admission did not show any pacing Will interrogate pacemaker (5) History of GI bleed: Transferred to [place] last December for GI bleed Hgb stable DVT px pt ambulates CODE status Full code Disposition Will monitor in tele Total Time Total Time Spent Total Time Spent (In Minutes): 35 minutes Total Time Includes: Examination of the Patient, Discharge Planning, Medication Reconciliation, Communication With Other Providers and Other Discharge Plan Discharge Items Patient Disposition: Home - Self-Care Reason For Visit: CHEST PAIN Discharge Diagnosis: Chest pain Pacemaker non-functioning Dyspnea Liver Cirrhosis Discharge Goals: Decrease discomfort, Diagnostic testing, Improve disease control, Improve function and Increase independence Activity: Resume your previous activity Activity Comment: As tolerated Non-emergency contact: Primary Care Provider and Body Shop Estimator Call non-emergency contact if: you have any medication questions and your symptoms worsen Follow-up/Referrals: Laron Clemens MD [Primary Care Provider] - Diet: Heart Healthy Addtl Provider Instructions: Follow up with Primary care provider Dr. Enrique on 09/21 @ 10:55 AM Follow up with your cardiology in [place] Nadolol discontinued Lasix added as needed for weight gain more than 3 lbs or (if develops any symptoms shortness with swelling in lower extremities) Prescriptions: New furosemide [Lasix] 20 mg tablet 20 mg PO DAILY PRN (Reason: weight gain more than 3lbs) Qty: 30 RF: 0 Continued ferrous sulfate 325 mg (65 mg iron) Tablet 325 mg PO DAILY RF: 0 Chantix Continuing Month Box 1 mg Tablet 1 mg PO BID RF: 0 Discontinued nadolol 20 mg tablet 20 mg PO DAILY RF: 0 Stand-Alone Forms: [facility]charge Orders: Discharge Order (Routine); Ordered 09/14/18 Ordered By: Elliot Baum Admission Data Admit Date/Time: 09/14/18 09:24 Attending Provider: Elliot Baum Admit Provider: Elliot Baum Primary Care Provider: Laron Clemens Other Providers: Elliot Baum ; Henok Kelsey Service: Intensive Care Unit Surgical Other Interventions: Discharge Summary Assessment (RN) Last Done: 09/14/18 19:05 DC Date/Time DO NOT enter until pt leaves facility: 09/14/18 19:22
== END 2018-09-14 19:22 | disposition home or self-care (01) ==
LOC: ED 06:18 → INTOOBSV 08:59 → 1E 10:52